=== PATIENT | female | born 1950 | race Caucasian/White ===

== ENCOUNTER → 2019-12-15 | Day surgery (SDC) | payer MEDICARE, OTHER ==
[~2019-12-15] MED LIST: AMLODIPINE BESYL5 MG PO; BUPROPION XL150 MG PO; CITRACAL + D31 EACH PO; COLACE100 MG PO; DICLOFENAC TOP; ESTROGEN PO; FENTANYL CITRATE/PF 100MCG/2 ML INJ ONE; FISH OIL 1,0001 EAC2 PO; GABAPENTIN300 MG PO; LOSARTAN POTAS100 MG PO; MIDAZOLAM HCL 2 MG/2 ML VIAL ONE; MOBIC7.5 MG PO; MULTI-VITAMIN1 EACH PO; OR PHACO EYE KIT ONE; PREOP PHACO EYE KIT ONE; SERTRALINE HCL50 MG PO; VESICARE5 MG PO; VIT C PO; ZYRTEC-D TABLE1 EACH PO
[2019-12-15 16:35] VITALS: BP 157/74
== END | disposition home or self-care (01) ==
LOC: OR 12:19
PROVIDERS: ATTEND Ophthalmology
DX: H25.11 Age-related nuclear cataract, right eye (principal); I10 Essential (primary) hypertension; F32.9 Major depressive disorder, single episode, unspecified; Z01.812 Encounter for preprocedural laboratory examination; Z11.59 Encounter for screening for other viral diseases
CPT/HCPCS: 66984; U0002; J2250; J3010; V2632

== ENCOUNTER → 2019-12-29 | Day surgery (SDC) | payer MEDICARE, OTHER ==
[2019-12-29 14:10] VITALS: BP 155/77
== END | disposition home or self-care (01) ==
LOC: OR 11:05
PROVIDERS: ATTEND Ophthalmology
DX: H25.12 Age-related nuclear cataract, left eye (principal); I10 Essential (primary) hypertension; F32.9 Major depressive disorder, single episode, unspecified; Z01.812 Encounter for preprocedural laboratory examination; Z11.59 Encounter for screening for other viral diseases
CPT/HCPCS: 66984; U0002; J2250; J3010; V2788